=== PATIENT | female | born 1995 | race Caucasian/White ===

== ENCOUNTER 2020-08-20 18:52 | Inpatient (IN) | payer OTHER, SELFPAY ==
[2020-08-20] VITALS (12 sets, daily range): BP systolic 113–136; BP diastolic 63–83; PULSE 92–129; RESP 18; TEMP 36.8; O2SAT 98; BMI 26.4
[2020-08-20 19:30] LABS: Basophils Absolute Auto 0.1 K/mm3 (0.0-0.1); Basophils Percent Auto 0.6 % (0.2-1.2); Eosinophils Absolute Auto 0.4 K/mm3 (0-0.3); Eosinophils Percent Auto 2.8 % (0-4.4); Hematocrit 36.1 % (37.0-47.0); Hemoglobin 11.7 g/dL (12.0-15.0); Immature Granulocyte Percent A 0.7 % (0-0.5); Lymphocytes Percent Auto 18.5 % (18.3-44.2); Mean Corpuscular HGB Conc 32.4 g/dl (32-36); Mean Corpuscular Hemoglobin 24.4 pg (26-34); Mean Corpuscular Volume 75.2 fl (80-100); Monocytes Absolute Auto 1.2 K/mm3 (0.1-0.6); Monocytes Percent Auto 7.6 % (2.6-8.5); Neutrophils Absolute Auto 10.5 K/mm3 (1.3-6.7); Neutrophils Percent Auto 69.8 % (45.5-73.1); Platelet Count Result 388 k/mm3 (150-375); Red Cell Distribution Width 13.6 % (11.5-14.5); White Blood Count 15.1 K/mm3 (4.5-10.0)
--- NOTE | 2020-08-20 20:08 | P.PCNOB_ITS ---
OB - Delivery Note Procedure Delivery date: 08/20/20 Intrapartal events: None and Precipitous Labor < 3 hours Induction method: none Delivery monitor: external FHT Route of delivery: Episiotomy description: None Laceration Description: None Specimen: No Quantitative Blood Loss (ml): 158 Anesthesia type: None Disposition: floor [place] Baby Date of : 08/20/20 Time of : 20:00 Weeks of gestation at delivery: 39 gender: Female presentation: vertex position: Right Occiput Anterior Placenta delivery description: Spontaneous cord vessel description: 3 Vessels score one minute: 8 score five minutes: 9
[2020-08-20] MEDS: IBUPROFEN 600 MG TABLET PO (20:45)
[2020-08-20] MEDS: BENZOCAINE 20% AER SPR (*SP) 56 GM CAN 1 SPRAY TOPICAL (22:25)
[2020-08-20] MEDS: WITCH HAZEL 40 PADS 1 PAD TOPICAL (22:25)
[2020-08-20] MEDS: LANOLIN (LANSINOH) 7.5 GM CREAM 1 APPLIC TOPICAL (22:45)
--- NOTE | 2020-08-20 22:59 | LDADM ---
This patient, Maritza Pro, was admitted to OB 2nd Floor Room 281 on 08/20/20 at 18:52. Plans for labor, pain management and were discussed with patient. Patient/family oriented to hospital policies and general routines including ID bracelet, bed and alarms, visiting hours, pain management, procedures, bathroom and other care routines, personal items, smoking policy, room service/diet and guest tray routines, infant security routines, and visiting hours. Patient/Family are encouraged to report perceived risks to care and to ask questions if they do not understand what they are told or what they should do. See OBIX for further documentation.
--- NOTE | 2020-08-21 02:53 | PC.NURSE ---
Addendum entered by Rachael Ceballos RN 08/21/20 02:54: Admission - 08/20/2020 @ 2242. Original Note: Patient transferred to post room #281 via wheelchair. Support person present. Oriented to unit, room, information board, rooming in, admission packet and security measures. Patient verbalizes understanding.
[2020-08-21 03:35] VITALS: BP 108/67; PULSE 90; RESP 18; TEMP 36.8; O2SAT 99
[2020-08-21 03:36] LABS: Hematocrit 32.6 % (37.0-47.0); Hemoglobin 10.5 g/dL (12.0-15.0)
[2020-08-21 07:44] LABS: Rapid Plasma Reagin Non-Reactive (NonReactive)
[2020-08-21] MEDS: IBUPROFEN 600 MG TABLET PO (08:02)
[2020-08-21 08:03] VITALS: BP 113/67; PULSE 99; RESP 14; TEMP 36.3; O2SAT 100
[2020-08-21] MEDS: DOCUSATE SODIUM 100 MG CAPSULE PO (08:03)
[2020-08-21] MEDS: MULTIVIT/MIN/PREN/FOL AC/IRON TABLET 1 TAB PO (08:03)
--- NOTE | 2020-08-21 09:19 | P.PNOB_ITS ---
OB - PN: Subj Subjective Date/time seen: 08/21/20 09:19 Patient comments: no complaints, pain well controlled and tolerating diet [place] feeding status: exclusively breast feeding Narrative: patient doing well this AM. No complaints. Pain is well controlled. She reports minimal bleeding. She is ambulating and voiding without difficulty. She is tolerating PO. She denies N/V, fever, chills. OB - PN: Obj Data Labs CBC & Chem 7: 08/21/20 03:03 Labs: Laboratory Results - last 24 hr 08/20/20 08/20/20 08/20/20 19:20 19:20 19:20 WBC 15.1 H RBC 4.80 Hgb 11.7 L Hct 36.1 L MCV 75.2 L MCH 24.4 L MCHC 32.4 RDW 13.6 Plt Count 388 H MPV 10.0 Immature Gran % (Auto) 0.7 H Neut % (Auto) 69.8 Lymph % (Auto) 18.5 [place] % (Auto) 7.6 Eos % (Auto) 2.8 Baso % (Auto) 0.6 Lymph # (Auto) 2.80 [place] # (Auto) 1.2 H Eos # (Auto) 0.4 H Baso # (Auto) 0.1 Abs Immat Gran (auto) 0.10 H Absolute Neuts (auto) 10.5 H Absolute Nucleated RBC 0.0 Nucleated RBC % 0.0 RPR Non-reactive Blood Type O Positive Antibody Screen Negative 08/21/20 03:03 WBC RBC Hgb 10.5 L Hct 32.6 L MCV MCH MCHC RDW Plt Count MPV Immature Gran % (Auto) Neut % (Auto) Lymph % (Auto) [place] % (Auto) Eos % (Auto) Baso % (Auto) Lymph # (Auto) [place] # (Auto) Eos # (Auto) Baso # (Auto) Abs Immat Gran (auto) Absolute Neuts (auto) Absolute Nucleated RBC Nucleated RBC % RPR Blood Type Antibody Screen OB - PN A/P Plan day: 1 Plan: routine care Comments: patient doing well H/H stable continue routine care Time Spent With Patient Time: Total time spent is greater than 50% in coordination of care (as documented) at patient's floor/unit and/or counseling patient: Time with patient: less than 15 minutes Review of Systems Review of Systems: All systems reviewed & are unremarkable except as noted in HPI and below Exam Const: General: comfortable and no acute distress Resp: Effort & Inspection: normal respiratory effort Cardio: Rate: regular rate GI: GI Palp: Yes Soft to palpation and No Tenderness to palpation present (GI) Auscultation: normal bowel sounds Other: fundus firm and below umbilicus. Psych: Affect: normal affect
[2020-08-21 12:00] VITALS: BP 115/65; PULSE 92; RESP 16; TEMP 36.8; O2SAT 100
[2020-08-21 15:15] VITALS: BP 116/63; PULSE 93; RESP 12; TEMP 36.9; O2SAT 100
[2020-08-21 18:30] VITALS: BP 126/76; PULSE 87; RESP 18; TEMP 37.1; O2SAT 100; O2SAT 99
--- NOTE | 2020-08-22 07:31 | P.DS_ITS ---
DS: Admitting Diagnosis Admitting Diagnosis Admitting Diagnosis: labor OB - DS: Summary OB Procedures : None OB Procedures Intrapartum: Spontaneous Vag Delivery OB Procedures: : None Status at Discharge Functional status at discharge: independent ambulation Overall status at discharge: patient is back to baseline Time Spent with Patient Time attestation: Total time spent providing and/or coordinating discharge services: Time spent: Less than 30 minutes Exam Const: General: comfortable and no acute distress Resp: Effort & Inspection: normal respiratory effort Auscultation: clear to auscultation bilaterally Cardio: Rate: regular rate GI: GI Palp: Yes Soft to palpation Auscultation: normal bowel sounds Other: Fundus firm below umbilicus Psych: Appearance: grossly normal Mental Status: mental status grossly normal Affect: normal affect DS: Data Data Completed and Pending Labs on day of discharge: Labs from last 24 hours 08/20/20 19:20 RPR Non-reactive Discharge Plan Discharge Discharging Clinician: Tesfaye Henson Patient Disposition: Home, Self-Care Activity: as tolerated and pelvic rest Diet: regular Patient Instructions: Antibiotic Form Stand Alone Forms: General Discharge Information Follow-up/Referrals: Tesfaye Henson MD [Physician] - 4 Weeks Discharge Medications: New acetaminophen [Mapap (acetaminophen)] 325 mg Tablet 650 mg PO Q6H PRN (Reason: Mild Pain (1-3) Or Headache) Qty: 30 RF: 0 ibuprofen 600 mg Tablet 600 mg PO Q6H PRN (Reason: Cramping) Qty: 30 RF: 0 No Action PNV cmb#95-ferrous fumarate-FA [] 28 mg iron- 800 mcg Tablet 1 tablet PO DAILY RF: 0 Date of admission: 08/20/20 18:52 Primary Care Provider: PHYSICIAN,OPERATING ROOM SURGICAL TECHNOLOGIST Admitting Provider: Tesfaye Henson Attending physician on admission: Tesfaye Henson Condition: Stable
--- NOTE | 2020-08-22 08:15 | PC.NURSE ---
Consult with pt., mother reports this to be 2nd child to breastfeed. is eagerly latching without difficulties or discomfort. Mother is able to independently latch with appropriate positioning/alignment. She denies any nipple discomfort, is feeding as required and waking to feed if needed. has had at least 8 effective feedings in the past 24 hours, and is currently meeting outcomes for weight, output, jaundice and feeding frequencies. Mother states she feels confident to continue effective at home. Reviewed transition to breast milk, signs of adequate intake, and engorgement/relief. Instructed to call ICP if intake/output less than required. Reviewed regular medications mother is taking. Information provided per Maria De Jesus. Reviewed community resources on the [facility] website and in the Mom/Baby guide. Information on outpatient services provided. Mother has no further questions at this time.
[2020-08-22 08:45] VITALS: BP 103/65; PULSE 86; RESP 16; TEMP 37.3; O2SAT 99
[2020-08-22] MEDS: DOCUSATE SODIUM 100 MG CAPSULE PO (10:00)
[2020-08-22] MEDS: MULTIVIT/MIN/PREN/FOL AC/IRON TABLET 1 TAB PO (10:00)
--- NOTE | 2020-08-22 14:31 | PC.NURSE ---
1030 Patient viewed the discharge video Mother & Baby Care, The First Two Weeks . Patient was given the opportunity and encouraged to ask questions. Patient verbalized understanding of information shared and has been given the mother/baby guide for home reference.
[2020-08-24 09:20] VITALS: BP 116/66; PULSE 98; RESP 20; TEMP 36.8; O2SAT 100
== END 2020-08-22 13:45 | disposition home or self-care (01) | DRG 560 ==
LOC: ANHLDR 19:15 → ANHOB2 22:46
PROVIDERS: Obstetrics & Gynecology; Admitting Provider Student in an Organized Health Care Education/Training Program; Visit Provider Student in an Organized Health Care Education/Training Program
DX: O62.3 Precipitate labor (principal); O76 Abnormality in fetal heart rate and rhythm complicating labor and delivery; Z3A.39 39 weeks gestation of pregnancy; Z37.0 Single live birth
CPT/HCPCS: 36415; 85014; 85018; 85025; 86592; 86850; 86900; 86901; A9270; J2795

== ENCOUNTER 2024-07-04 22:43 | Inpatient (IN) | payer OTHER, SELFPAY ==
[2024-07-04 23:00] VITALS: TEMP 36.6
--- OUTSIDE RECORDS SUMMARY | 2024-07-04 23:00 | XMS_ITS | Patient Health Summary ---
Author Organization [facility] Address [address] [place] [address] Care Team Providers Care Farm Mechanic Name Role Phone Roxi Britton DO Primary Care Provider [phone] Note from [facility],non-owned Affiliates and Associated Physician Practices is amultiple site organization consisting of ambulatory clinics and hospital sitesin [place], [place], [place] and [place]. This disclosure is being madepursuant to the Care Everywhere program and may not contain all information available regarding this patient. Last updated 18.[facility] Allergies No known active allergies Medications * Be aware that medications may not be up to date on this document. Alwaysverify current medications with the patient. * nortriptyline (PAMELOR) 10 MG capsule(Started 09/28/2012) 1 cap PO QHS x 2 weeks; then increase to 2 caps PO QHS 5 refills left * naproxen sodium (ANAPROX) 275 MG tablet(Started 09/28/2012) Take 1 Tab by mouth 2 times daily as needed for Pain (at onset of migraine). 2 refills left Active Problems Problem Noted Date Diagnosed Date Echogenic focus of heart of fetus affecting antepartum care of mother 04/28/2020 Migraine 09/28/2012 Social History Tobacco Use Types Packs/Day Years Used Date Smoking Tobacco: Never Assessed Sex and Gender Information Value Date Recorded Sex Assigned at Not on file Gender Identity Not on file Sexual Orientation Not on file Last Filed Vital Signs Vital Sign Reading Time Taken Comments Blood Pressure 84/56 09/28/2012 1:41 PM CDT Pulse - - Temperature 35.9 C (96.6 F) 05/08/2020 1:05 PM CONTACT CENTER CONSULTANT Respiratory Rate - - Oxygen Saturation - - Inhaled Oxygen Concentration - - Weight 51.1 kg (112 lb 11.2 oz) 09/28/2012 1:41 PM CDT Height 159.8 cm (5' 2.91 ) 09/28/2012 1:41 PM CD T Body Mass Index 20.02 09/28/2012 1:41 PM CDT Procedures * SONOGRAM - COMPLETE(Performed 05/08/2020) Performed for Encounter for repeat ultrasound of pyelectasis in [place] , antepartum (HCC) Results * SONOGRAM - COMPLETE (05/08/2020 1:06 PM CONTACT CENTER CONSULTANT) Anatomical Region Laterality Modality Other 05/08/2020 1:06 PM CONTACT CENTER CONSULTANT Narrative 05/08/2020 4:43 PM CONTACT CENTER CONSULTANT [facility] PHONE: FAX: Pat. Name: MAYA PRO Pat. No: [id number] Study Date: 05/08/2020 1:06pm , Age: 7 1995, 24 Pregnancies: 2, Para 1 Height: 62 in Weight: 123 lb LMP: 11/19/2019 GA by LMP: 24w3d GA by US: 24w1d NORA: 08/27/2020 GA Selected: 24w3d (LMP) NORA: 08/25/2020 Referring MD: Suzie Ramsey MD [employer] Handler: Mariya Simmons RDMS CPT4: 10812 BMI: 22.49 Hist/Ind: Renal Pelvis Dilation EIF MEASUREMENTS & AGE GROWTH EVALUATION Measurement GA Range Srce %for GA Ratios ----- ---- ------- BPD 6.2 cm 25w0d ([id number]) Hadl BPD 64% FL/BPD 0.69 (0.71 - 0.87* HC 22.4 cm 24w3d ([id number]) Hadl HC 31% FL/AC 0.22 (0.20 - 0.24) AC 19.2 cm 23w6d (39d4l-68x5o) Hadl AC 27% HC/AC 1.17 (1.02 - 1.21) FL 4.3 cm 23w6d (31b4r-47p4g) Hadl FL 22% CI 0.78 (0.70 - 0.86) HL 3.9 cm 23w5d (13o7d-00l5s) Jack HL 38% Cere 2.7 cm 23w6d (87e3q-59b3e) Pool Cere37% GA for sonogram 24w1d (39n9w-77g7g) Weight Estimate: based on (HL,BPD,HC,AC,FL) Avg Weight: 651 gm (556-746gm) [place] : 1lbs, 6oz Normal: 716 gm (537-895gm) [place] Wt% 25% for 24w3d Heart Rate: 139 bpm Amniotic Fluid Index: 05.7cm (Deepest Pocket) EVAL, PLACENTA Presentation: cephalic Umbilical Cord: 3 Vessels Placenta: anterior Heart Rate: 139 bpm Amniotic Fluid Volume: normal Anatomy!Normal!Abnormal!Suboptimal!Prev. Seen!Comments Cranium ! x ! ! ! ! Mdl (CSP/Thal! x ! ! ! ! Ventricles ! x ! ! ! ! Choroid Plexu! x ! ! ! ! Cerebellum ! x ! ! ! ! Cerebellar Ve! x ! ! ! ! Cisterna M. ! x ! ! ! ! Nuchal Fold ! x ! ! ! ! Orbits ! x ! ! ! ! Profile ! x ! ! ! ! Nasal Bone ! x ! ! ! ! Lip ! x ! ! ! ! Maxilla ! x ! ! ! ! Mandible ! x ! ! ! ! Neck ! x ! ! ! ! Spine ! x ! ! ! ! Lungs ! x ! ! ! ! 4 Chamber Hea! x ! ! ! ! LVOT ! x ! ! ! ! RVOT ! x ! ! ! ! 3 Vessel View! x ! ! ! ! 3 Vessel Trac! x ! ! ! ! Cross-over ! x ! ! ! ! Ductal Arch ! x ! ! ! ! Aortic Arch ! x ! ! ! ! Caval View ! x ! ! ! ! Situs ! x ! ! ! ! Diaphragm ! x ! ! ! ! Stomach ! x ! ! ! ! Liver ! x ! ! ! ! Bowel ! x ! ! ! ! Kidneys ! x ! ! ! ! Bladder ! x ! ! ! ! 3 Vessel Cord! x ! ! ! ! Cord In! x ! ! ! ! Upper Extremi! x ! ! ! ! Hands ! x ! ! ! ! Lower Extremi! x ! ! ! ! Feet ! x ! ! ! ! External Katie! x ! ! ! !Female Placental Cor! x ! ! ! ! CLINICAL SUMMARY Study Number: 1 A single fetus is seen in cephalic presentation. The measurements today are consistent with appropriate size for the NORA provided. The NORA is based on LMP and a prior ultrasound. The amniotic fluid volume is within normal limits. EIF is seen in the left ventricle. NIPT was drawn today. IMPRESSION: Single, live intrauterine at 24w3d size is within normal limits Amniotic fluid volume: within normal limits Reassuring transvaginal cervical length No major malformations were seen within the limitations of ultrasound. RECOMMEND: Follow up as clinically indicated Thank you for allowing us they opportunity to care for your patient. Prateek Ku MD <Electronic Signature> 05/08/2020 04:43pm Suzie Ramsey MD [facility] ORDERABLES Care Teams Farm Mechanic Relationship Specialty Start Date End Date Roxi Britton DO PCP - General Family Medicine 07/24/12
--- OUTSIDE RECORDS SUMMARY | 2024-07-04 23:00 | XMS_ITS | Referral Summary ---
Author Organization [facility] Address [address] [place] [address] Care Team Providers Care Low Voltage Electrician Name Role Phone Roxi Britton DO Primary Care Provider [phone] Source Comments [facility],non-owned Affiliates and Associated Physician Practices is amultiple site organization consisting of ambulatory clinics and hospital sitesin [place], [place], [place] and [place]. This disclosure is being madepursuant to the Care Everywhere program and may not contain all information available regarding this patient. Last updated 18.[facility] Allergies No known active allergies Medications * Be aware that medications may not be up to date on this document. Alwaysverify current medications with the patient. Medication Sig Dispensed Refills Start Date End Date Status nortriptyline (PAMELOR) 10 MG capsuleIndications:Mi graine 1 cap PO QHS x 2 weeks; then increase to 2 caps PO QHS 60 Cap 5 09/28/2012 Active naproxen sodium (ANAPROX) 275 MG tabletIndications:Roberto kari Take 1 Tab by mouth 2 times daily as needed for Pain (at onset of migraine). 15 Tab 2 09/28/2012 Active Active Problems Problem Noted Date Diagnosed Date Echogenic focus of heart of fetus affecting antepartum care of mother 04/28/2020 Overview (05/02/2020): O+, Negative, Immune, Rpr-NR, HIV-NR, Hbsag-NR H/h/p 13.4/39.1/328 Migraine 09/28/2012 Social History Tobacco Use Types [...] 35.9 C (96.6 F) 05/08/2020 1:05 PM LOFT WORKER HEAD Respiratory Rate - - Oxygen Saturation - - Inhaled Oxygen Concentration - - Weight 51.1 kg (112 lb 11.2 oz) 09/28/2012 1:41 PM CDT Height 159.8 cm (5' 2.91 ) 09/28/2012 1:41 PM CD T Body Mass Index 20.02 09/28/2012 1:41 PM CDT Plan of Treatment Not on file Care Teams Low Voltage Electrician Relationship Specialty Start Date End Date Roxi Britton DO PCP - General Family Medicine 07/24/12
--- OUTSIDE RECORDS SUMMARY | 2024-07-04 23:00 | XMS_ITS | Clinical Summary ---
Author Organization [facility] Address [address] [address] Care Team Providers Care Cat Scan Tech Name Role Phone Roxi Britton DO Primary Care Provider [phone] Source Comments [facility],non-owned Affiliates and Associated Physician Practices is amultiple site organization consisting of ambulatory clinics and hospital sitesin [place], [place], [place] and [place]. This disclosure is being madepursuant to the Care Everywhere program and may not contain all information available regarding this patient. Last updated 18.[facility] Allergies No known active allergies Medications * [...] 35.9 C (96.6 F) 05/08/2020 1:05 PM DIRECTOR COMMUNITY CENTER Respiratory Rate - - Oxygen Saturation - - Inhaled Oxygen Concentration - - Weight 51.1 kg (112 lb 11.2 oz) 09/28/2012 1:41 PM CDT Height 159.8 cm (5' 2.91 ) 09/28/2012 1:41 PM CD T Body Mass Index 20.02 09/28/2012 1:41 PM CDT Plan of Treatment Health Maintenance Due Date Last Done Comments PAP SMEAR 1995 HIV SCREENING 2012 HPV VACCINE (1 - 3-dose series) 2012 HEPATITIS C SCREENING 09/18/2015 DTAP/TDAP/TD VACCINES (1 - Tdap) 2016 HEPATITIS B VACCINE (1 of 3 - 19+ 3-dose series) 2016 COVID-19 VACCINE ( - 2023-2 5 season) 2024 INFLUENZA VACCINE (#1) 2024 0, 03/14/2009 DEPRESSION SCREENING 05/12/2024 ZOSTER VACCINE (1 of 2) 09/23/2047 HIB VACCINE Aged Out No longer eligi ble based on patient's age to complete this topic MENINGOCOCCAL (Group B) VACCINE Aged Out No longer eligible b ased on patient's age to complete this topic MENINGOCOCCAL VACCINE Aged Out No thelma sg eligible based on patient's age to complete this topic PNEUMOCOCCAL VACCINE Aged Out No long er eligible based on patient's age to complete this topic Care Teams Cat Scan Tech Relationship Specialty Start Date End Date Roxi Britton DO PCP - General Family Medicine 07/24/12
[2024-07-04 23:26] VITALS: BMI 29.2
--- NOTE | 2024-07-04 23:26 | LDADM ---
This patient, Maritza Pro, was admitted to Labor/Delivery/Recovery 105 on 07/04/24 at 22:43. Plans for labor, pain management and were discussed with patient. Patient/family oriented to hospital policies and general routines including ID bracelet, bed and alarms, visiting hours, pain management, procedures, bathroom and other care routines, personal items, smoking policy, room service/diet and guest tray routines, infant security routines, and visiting hours. Patient/Family are encouraged to report perceived risks to care and to ask questions if they do not understand what they are told or what they should do. See OBIX for further documentation.
[2024-07-04 23:29] LABS: Basophils Absolute Auto 0.1 K/mm3 (0.0-0.1); Basophils Percent Auto 0.6 % (0.2-1.2); Eosinophils Absolute Auto 0.3 K/mm3 (0-0.3); Eosinophils Percent Auto 2.9 % (0-4.4); Hematocrit 32.4 % (37.0-47.0); Hemoglobin 10.1 g/dL (12.0-15.0); Immature Granulocyte Absolute 0.07 K/mm3 (0.00-0.031); Immature Granulocyte Percent A 0.6 % (0-0.5); Lymphocytes Percent Auto 21.7 % (18.3-44.2); Mean Corpuscular HGB Conc 31.2 g/dl (32-36); Mean Corpuscular Hemoglobin 21.8 pg (26-34); Mean Platelet Volume 10.1 fl (7.4-10.4); Monocytes Absolute Auto 0.8 K/mm3 (0.1-0.6); Monocytes Percent Auto 7.2 % (2.6-8.5); Neutrophils Absolute Auto 7.7 K/mm3 (1.3-6.7); Platelet Count Result 303 k/mm3 (150-375); Red Blood Count 4.63 M/mm3 (4.2-5.4); Red Cell Distribution Width 15.4 % (11.5-14.5); White Blood Count 11.5 K/mm3 (4.5-10.0)
[2024-07-04 23:31] LABS: Microcytosis 1+ (NORMAL)
[2024-07-04 23:32] LABS: Platelet Estimate Adequate (Adequate); Schistocytes None Seen
[2024-07-04 23:38] VITALS: BP 125/88; PULSE 115
[2024-07-04 23:44] VITALS: BP 124/82; PULSE 118
[2024-07-04 23:59] VITALS: BP 120/83; PULSE 111
[2024-07-05] VITALS (14 sets, daily range): BP systolic 98–143; BP diastolic 62–108; PULSE 87–102; RESP 16–18; TEMP 36.3–36.9; O2SAT 98–100
[2024-07-05 00:20] LABS: HIV 1/2 Ab P24 Ag Result Negative (Negative)
[2024-07-05 00:24] LABS: Syphilis IgG/IgM Antibody Negative (Negative)
[2024-07-05] MEDS: fentaNYL CITRATE INJ (*CRX) 100 MCG/2 ML VIAL 50 MCG IV PUSH (02:23)
[2024-07-05] MEDS: LACTATED RINGERS 1,000 ML 125 ML IV CONT (02:23)
[2024-07-05] MEDS: ONDANSETRON INJ 4 MG/2 ML VIAL IV PUSH (02:45)
[2024-07-05] MEDS: OXYTOCIN 30 UNITS/NS 500 ML 30 UNITS/500 ML BAG 999 UNITS IV CONT (03:35)
--- NOTE | 2024-07-05 03:45 | PM.IMHP ---
H&P: HPI History of Present Illness Date/Time: 07/05/24 03:45 Chief Complaint: Labor at term Narrative: 28-year-old 3 para 2 whose EDC is 07/11/2024 confirmed by early ultrasound in last menstrual. Presents at 39 weeks gestation with spontaneous rupture membranes prior to admission. has been uncomplicated to negative for group B strep Review of Systems Review of Systems: All systems reviewed & are unremarkable except as noted in HPI and below PMFSH Family History Family History Sibling Cerebral palsy Sibling Irritable bowel disease Asthma Mother Asthma Father Hypertension Social History Social History Smoking status: Never smoker Substance use: never Do You Feel Safe in your Home?: Yes Lack of Transportation: No Lack of Food: Never True Current Housing: I Have Housing Concerned About Future Housing: No Difficulty Paying Gas/Electric Bills: No Difficulty Paying for Meds: No Currently Unemployed: No Education: Trade/Vocational Certificate Difficulty w/ Childcare or Family Care: No Gender identity (if verbalized by the patient): Female Spiritual care concerns: No Meds Home Medications and Allergies Home Medications ?Medication ?Instructions ?Recorded ?Confirmed ?Type vit no.95-ferrous 1 tablet PO DAILY 07/28/20 06/25/24 History fumarate 28 mg-folic acid 800 mcg tablet () Allergies Allergy/AdvReac Type Severity Reaction Status Date / Time No Known Allergies Allergy Verified 06/25/24 16:11 Vital Signs Vital Signs - 24 hr 07/04/24 23:00 07/04/24 23:26 07/04/24 23:38 Temperature 97.9 F Pulse Rate 115 H Blood Pressure 125/88 Oxygen Delivery Room Air 07/04/24 23:44 07/04/24 23:59 07/05/24 00:59 Temperature Pulse Rate 118 H 111 H 97 Blood Pressure 124/82 120/83 125/76 Oxygen Delivery 07/05/24 01:00 07/05/24 01:29 07/05/24 01:59 Temperature 98 F Pulse Rate 102 H 98 Blood Pressure 130/88 122/78 Oxygen Delivery 07/05/24 02:30 07/05/24 02:59 Temperature Pulse Rate 90 87 Blood Pressure 143/108 H 131/84 Oxygen Delivery Exam Const: General: cooperative, healthy appearing and comfortable Nutritional Appearance: average body habitus Orientation/consciousness: oriented to person, oriented to place and oriented to time HENMT: Head: normal to inspection Resp: Effort & Inspection: normal respiratory effort Cardio: Rate: regular rate Rhythm: regular rhythm Heart sounds: S1 normal heart sound present and S2 normal heart sound present GI: Inspection: normal to inspection (Gravid soft uterus) : External Female Exam: normal external appearance Speculum Exam - Vagina: normal appearance of the vagina Speculum Exam - Cervix: normal appearance of the cervix (Cervix was 6 now complete. Clear fluid. FHTs reassuring) H&P: Results Labs Labs: Short CBC 07/04/24 Range/Units 23:09 WBC 11.5 H (4.5-10.0) K/mm3 Hgb 10.1 L (12.0-15.0) g/dL Hct 32.4 L (37.0-47.0) % Plt Count 303 (150-375) k/mm3 Assessment and Plan Assessment and plan (1) Term : Code(s): Z34.90 - Encounter for supervision of normal , unspecified, unspecified trimester Status: Acute Plan Spontaneous vaginal delivery expected. She declines an epidural
--- NOTE | 2024-07-05 03:49 | PM.OBPRVD ---
OB - Vaginal Delivery Note Procedure Delivery date: 07/05/24 Induction method: None Delivery monitor: External FHT and External Uterine Route of delivery: Episiotomy description: None Laceration Description: None Specimen: No Quantitative Blood Loss (ml): 62 Anesthesia type: None Disposition: Floor Narrative: Patient was admitted with spontaneous rupture membranes at term her been uncomplicated. She rested unremarkable 1st stage of labor to complete she pushed delivered head spontaneously in the ERNA position. Anterior posterior shoulder delivered spontaneously. Cord clamped and was cut and passed off the table given Apgars of 8 [id number]. Cord blood was drawn. Placenta delivered intact spontaneously. Twenty of Pitocin placed IV to help firm the uterus. The vagina was inspected no tears or lacerations noted QBL was 62cc [place] Baby Date of : 07/05/24 Time of : 03:30 Gestational Age by Date: 39 Infant gender: Male Weight (pounds): 8 Weight (ounces): 9 presentation: vertex position: Right Occiput Anterior Placenta delivery description: Spontaneous Cord Vessel Description: 3 Vessels score one minute: 8 score five minutes: 9
--- NOTE | 2024-07-05 03:52 | PM.DS ---
DS: Admitting Diagnosis Discharge Date 07/06/2024 Admitting Diagnosis Term DS: Discharge Diagnosis Discharge Diagnosis (1) Term : Code(s): Z34.90 - Encounter for supervision of normal , unspecified, unspecified trimester Status: Acute DS: Summary Hospital Course Reason for hospitalization: The patient was admitted with spontaneous rupture membranes at term. She underwent spontaneous vaginal delivery with no anesthesia Hospital Course: Patient's hospital course unremarkable. She remained afebrile. She was up, voiding without difficulty, eating regular diet, ambulating, generally without complaints. Time Spent with Patient Time attestation: Total time spent providing and/or coordinating discharge services: Exam Const: General: cooperative, healthy appearing and comfortable Nutritional Appearance: average body habitus Resp: Effort & Inspection: normal respiratory effort Cardio: Rate: regular rate Rhythm: regular rhythm Heart sounds: S1 normal heart sound present and S2 normal heart sound present GI: Inspection: normal to inspection (Firm below the umbilicus) DS: Data Data Completed and Pending Labs on day of discharge: Labs from last 24 hours 07/04/24 23:09 WBC 11.5 H RBC 4.63 Hgb 10.1 L Hct 32.4 L MCV 70.0 L MCH 21.8 L MCHC 31.2 L RDW 15.4 H Plt Count 303 MPV 10.1 Immature Gran % (Auto) 0.6 H Neut % (Auto) 67.0 Lymph % (Auto) 21.7 [place] % (Auto) 7.2 Eos % (Auto) 2.9 Baso % (Auto) 0.6 Lymph # (Auto) 2.50 [place] # (Auto) 0.8 H Eos # (Auto) 0.3 Baso # (Auto) 0.1 Abs Immat Gran (auto) 0.07 H Absolute Neuts (auto) 7.7 H Absolute Nucleated RBC 0.000 Band Neutrophils % Not Reportable Nucleated RBC % 0.0 Platelet Estimate Adequate Microcytosis 1+ Schistocytes None seen Syphilis IgG/IgM Ab Negative HIV 1&2 Ab/P24 Ag 4thGn Negative Blood Type O Positive Antibody Screen Negative Discharge Plan Discharge Attending physician on discharge: Prateek Terrazas Discharging Clinician: Prateek Terrazas Patient Disposition: Home, Self-Care Activity: may shower, no straining and pelvic rest Diet: heart healthy Wound Care Instructions: follow printed instructions Patient Instructions: Antibiotic Form Patient Language: Luxembourgish Stand Alone Forms: General Discharge Information Follow-up/Referrals: Prateek Terrazas MD [Physician] - Discharge Medications: Continued PNV [id number] [] 28 mg iron- 800 mcg Tablet 1 tablet PO DAILY Date of admission: 07/04/24 22:43 Primary Care Provider: PHYSICIAN,SUPERVISOR ADVICE Admitting Provider: Prateek Terrazas Attending physician on admission: Prateek Terrazas Condition: Stable
[2024-07-05] MEDS: OXYTOCIN 30 UNITS/NS 500 ML 30 UNITS/500 ML BAG 125 UNITS IV CONT (04:11)
[2024-07-05] MEDS: IBUPROFEN 600 MG TABLET PO (05:06)
--- NOTE | 2024-07-05 05:33 | PC.NURSE ---
Patient transferred to post room #288 via (W/C). Support person present. Oriented to unit, room, information board, rooming in, admission packet and security measures. Patient verbalizes understanding.
[2024-07-05] MEDS: MULTIVIT/MIN/PREN/FOL AC/IRON TABLET 1 TAB PO (08:50)
[2024-07-05] MEDS: DOCUSATE SODIUM 100 MG CAPSULE PO ×2 (08:50→16:16)
--- NOTE | 2024-07-05 10:15 | PC.NURSE ---
Introductions were made, then consulted with patient to assess needs related to . Discussed with mother her?plans to feed?her and the?experience so far. She breastfed her last 2 children. Resources provided for inpatient and outpatient services with the feeding sheet, mom/baby guide and name/number written on the communication board. Mother voiced understanding of information and will call if there is a request for assistance. Reported to the Primary RN.
[2024-07-05] MEDS: ACETAMINOPHEN 325 MG TABLET 650 MG PO (16:16)
[2024-07-06 00:52] VITALS: BP 105/66; PULSE 92; RESP 16; TEMP 36.6; O2SAT 99
[2024-07-06 06:16] LABS: Hematocrit 27.4 % (37.0-47.0); Hemoglobin 8.3 g/dL (12.0-15.0)
--- NOTE | 2024-07-06 07:36 | PM.OBPNVD ---
OB - PN: Subj Subjective Date/time seen: 07/06/24 07:36 Patient comments: no complaints, pain well controlled and tolerating diet [place] baby status: doing well OB - PN: Obj Data Labs 07/06/24 05:53 Labs: Laboratory Results - last 24 hr 07/06/24 05:53 Hgb 8.3 L Hct 27.4 L OB - PN A/P Assessment and Plan (1) Term : Code(s): Z34.90 - Encounter for supervision of normal , unspecified, unspecified trimester Status: Acute Plan Comments: home Time Spent With Patient Time: Total time spent is greater than 50% in coordination of care (as documented) at patient's floor/unit and/or counseling patient: Review of Systems Review of Systems: All systems reviewed & are unremarkable except as noted in HPI and below Exam Const: General: cooperative, healthy appearing and comfortable Nutritional Appearance: average body habitus Orientation/consciousness: oriented to person, oriented to place and oriented to time Resp: Effort & Inspection: normal respiratory effort GI: Inspection: normal to inspection
[2024-07-06 07:46] VITALS: BP 104/75; PULSE 86; RESP 16; TEMP 36.5; O2SAT 98
--- NOTE | 2024-07-06 08:12 | PC.NURSE ---
On 07/06/24, the student, Leidy Macedo, provided care and completed [facility] documentation on this patient. I have reviewed the student's documentation and agree with the findings.
[2024-07-06] MEDS: POLYSACCHARIDE IRON COMPLEX 150 MG CAPSULE PO (08:41)
[2024-07-06] MEDS: DOCUSATE SODIUM 100 MG CAPSULE PO (08:41)
[2024-07-06] MEDS: MULTIVIT/MIN/PREN/FOL AC/IRON TABLET 1 TAB PO (08:41)
--- NOTE | 2024-07-06 09:48 | PC.NURSE ---
Consulted with mother concerning needs and she shared her ability to independently latch infant optimally without pain. Latch assessed by this RN at this time. Mother denies pain. Mother is feeding appropriately for growth of and understands stimulating infant to eat if needed. has had appropriate feedings in the last 24 hours meets the outcomes for weight, output, blood sugar and jaundice at this time. Reinforced understanding of milk production, transition of milk, signs of adequate intake, transition of stool, prevention/relief of engorgement, plugged ducts, mastitis, responsive watching for feeding cues, the different methods of stimulating infant to breastfeed 1-3 hours after the start of the last feeding, community resources, and when to call a provider using the resource of the feeding sheet along with the mom and baby guide. Mother voiced understanding of the information shared, is confident to continue effectively her at home, when to call for assistance, denies any additional assistance or education at this time. Reported to the Primary RN.
[2024-07-07 10:17] VITALS: BP 116/66; PULSE 97; RESP 18; TEMP 37.1; O2SAT 100
== END 2024-07-06 13:45 | disposition home or self-care (01) | DRG 807 ==
LOC: ANHLDR 07-05 03:55 → ANHOB2 07-05 05:49
PROVIDERS: Admitting Provider Obstetrics & Gynecology; Visit Provider Obstetrics & Gynecology
DX: O80 Encounter for full-term uncomplicated delivery (principal); Z37.0 Single live birth; Z3A.39 39 weeks gestation of pregnancy
CPT/HCPCS: 36415; 85014; 85018; 85025; 86593; 86703; 86850; 86900; 86901; A9270; G0432; J2405; J2590; J3010; J7120